=== PATIENT | male | born 1960 | race Caucasian/White ===

== ENCOUNTER 2022-12-27 14:49 | Emergency (ER) | payer OTHER ==
[2022-12-27 15:44] VITALS: BP 130/82; PULSE 118; RESP 18; TEMP 98.1; BMI 28.8
== END 2022-12-27 17:02 | disposition home or self-care (01) ==
LOC: JERFT 14:49
DX: Z76.0 Encounter for issue of repeat prescription (principal)
CPT/HCPCS: 99281-25

== ENCOUNTER 2023-01-31 20:27 | Emergency (ER) | payer OTHER ==
[2023-01-31 20:42] VITALS: BP 121/82; PULSE 85; RESP 16; TEMP 97.6; BMI 26.6
[2023-01-31 22:13] LABS: BASO % 1.1 % (0-2.0); EOS % 1.3 % (0-4.5); HEMATOCRIT 25.9 % (35.4-49); HEMOGLOBIN 8.5 GM/dL (11.7-16.9); LYMPH % 14.7 % (8-40); MCH 27.9 pg (25.7-33.7); MCHC 32.6 g/dl (32.0-35.9); MEAN CELL VOLUME 85.5 fl (80-96); MEAN PLT VOLUME 8.4 fl (7.5-11.1); MONO % 17.3 % (3.8-10.2); NEUT % 65.6 % (42.8-82.8); PLATELET COUNT 131 10^3/uL (134-434); RBC 3.03 M/mm3 (4.00-5.60); RDW 16.4 % (11.9-15.9); WHITE BLOOD COUNT 6.8 K/mm3 (4.0-10.0)
[2023-01-31 22:15] LABS: INR 1.28 (0.83-1.09); PROTHROMBIN TIME (PATIENT) 14.8 SEC (9.7-13.0)
[2023-01-31 22:17] LABS: ACTIVATED PTT 32.6 SECONDS (25.2-36.5)
[2023-01-31 22:30] LABS: CALCIUM 8.9 mg/dL (8.5-10.1)
[2023-01-31 22:31] LABS: ALBUMIN 2.6 g/dl (3.4-5.0); BLOOD UREA NITROGEN 18.9 mg/dL (7-18)
[2023-01-31 22:34] LABS: CREATININE 0.9 mg/dL (0.55-1.3)
[2023-01-31 22:35] LABS: TOT PROT 8.5 g/dl (6.4-8.2)
[2023-01-31] MEDS ORDERED: ASPIRIN 325 MG TABLET PO ONE (23:05)
[2023-01-31] MEDS ORDERED: ASPIRIN 325 MG TABLET ONE (23:12)
== END 2023-01-31 23:30 | disposition left against medical advice (07) ==
LOC: JER 20:27
DX: R47.81 Slurred speech (principal)
CPT/HCPCS: 36415; 70450-TC; 70496-TC; 70498-TC; 80053; 80061; 80307; 82550; 82553; 83036; 84484; 85025; 85610; 85730; 86850; 86900; 86901; 93005; 93010; 99285-25